=== PATIENT | female | born 1985 | race Caucasian/White ===

== ENCOUNTER 2024-05-15 08:11 | Observation (INO) | payer OTHER, SELFPAY ==
[2024-05-15] VITALS (80 sets, daily range): BP systolic 133–240; BP diastolic 73–141; PULSE 87–245; RESP 15–30; TEMP 36.4–36.7; O2SAT 93–98
[2024-05-15] MEDS: adenosine 3 mg/mL SDV 2mL 6 MG IVP (08:22)
[2024-05-15] MEDS: adenosine 3 mg/mL SDV 2mL 12 MG IVP (08:24)
--- NOTE | 2024-05-15 08:27 | ECG_ITS ---
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 Measurements Intervals [place] Rate: 120 P: 59 SD: 162 QRS: 43 QRSD: 68 T: 23 QT: 293 QTc: 415 Interpretive Statements SINUS TACHYCARDIA No previous ECG available for comparison Electronically Signed On 05-18-2024 22:09:48 FLORICULTURIST by Brady Christian M.D. [id number]
--- NOTE | 2024-05-15 08:30 | ED_ITS ---
HPI - Arrhythmia/Palpitations 2 General: Chief Complaint: Arrhythmia/Palpitations Stated Complaint: chest pain Time Seen by Provider: 05/15/24 08:28 History of Present Illness: 39-year-old female presents to the [facility] ency room with history of rapid heart rates. She states she has had episodes frequently of racing heart rate with her usually self terminating. She has seen In consultation regarding this but they have not made to confirm diagnosis. 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 She is not having any chest pain at this time. Patient denies being diabetic. She is not on any medication to suppress her heart rate she does occasionally use albuterol nebulizer but has not associated these episodes with the use of the albuterol. She has no known history of heart disease. She did not previously had a angiogram or stress test or echocardiogram. Related Data Home Medications Medication Instructions Recorded Confirmed albuterol sulfate 2.5 mg/3 mL 2.5 mg inhalation TID PRN 05/15/24 05/15/24 (0.083 %) solution for nebulization Shortness Of Breath Or Wheezing albuterol sulfate 90 mcg/actuation 2 puff inhalation Q6H PRN 05/15/24 05/15/24 aerosol inhaler Shortness Of Breath Or Wheezing budesonide-formoterol HFA 160 2 puff inhalation BID 05/15/24 05/15/24 mcg-4.5 mcg/actuation aerosol inhaler (Symbicort) Allergies Allergy/AdvReac Type Severity Reaction Status Date / Time brompheniramine Allergy ALGY-Hives Verified 05/15/24 08:43 [From Dimetapp (brompheniramine-PPA)] phenylpropanolamine Allergy ALGY-Hives Verified 05/15/24 08:43 [From Dimetapp (brompheniramine-PPA)] Review of Systems 2 Const: Denies: fever(s) or chills Card: Reports: palpitations and dyspnea on exertion; Denies: chest pain Resp: Denies: dyspnea GI: Denies: abdominal pain : Denies: dysuria, urinary frequency or urinary urgency Musc: Denies: neck pain or back pain Skin/Breast: Denies: rash PFSH ED 2 PFSH: Medical History Asthma Physical Exam 2 Const: GENERAL APPEARANCE: cooperative ORIENTATION/CONSCIOUSNESS: Yes awake, Yes oriented to person, Yes oriented to place and Yes oriented to time HENMT: COMMON NORMALS: normocephalic, atraumatic and hearing grossly normal bilaterally HEAD & SCALP: normocephalic and atraumatic Resp: COMMON NORMALS: normal respiratory effort, No retractions, No use of accessory muscles and clear to auscultation bilaterally AUSCULTATION: clear to auscultation bilaterally Cardio: COMMON NORMALS: regular rhythm and No murmurs present (Cardio) R ATE: tachycardic RHYTHM: regular rhythm GI: COMMON NORMALS: Soft to palpation and No hepatosplenomegaly present A USCULTATION: Yes normoactive bowel sounds PALPATION: Yes Soft to palpation, No Tenderness to palpation present (GI), No Guarding due to palpation present (GI) and Yes No hepatosplenomegaly present Extremity: COMMON NORMALS: normal to inspection, capillary refill normal, no clubbing, cyanosis or edema, no calf tenderness and no pedal edema Neuro: SENSORIUM/ORIENTATION: Yes oriented to person, Yes oriented to place and Yes oriented to time Skin: COMMON NORMALS: no rashes or lesions noted GENERAL SKIN EXAM: no rashes or lesions noted Course 2 Vital Signs: Vital signs: Vital Signs Temperature 98.1 F 05/15/24 08:15 Pulse Rate 90 05/15/24 14:47 Respiratory Rate 18 05/15/24 11:21 Blood Pressure 177/108 05/15/24 14:47 Pulse Oximetry 98 05/15/24 14:47 Oxygen Delivery Me thod Room Air 05/15/24 14:22 MDM - Arrhythmia/Palpitations Medical Decision Making Patient initially presents to the rapid heart rate in the 230s to 240s appears to be SVT. She is moderately symptomatic. Triage nurse expedited patient back to one of the trauma bay's while IV was being established we tried carotid massage was also tried Valsalva maneuvers with no slowing of rate. Patient was given 6 mg of IV adenosine with no noticeable improvement second dose at 12 converted her to a sinus tachycardia. Blood pressure was stable 130s systolic. She is given IV metoprolol and p.o. metoprolol other labs pending. Patient remained stable after converting however her blood pressure did climb she was given hydralazine and another dose of IV metoprolol. She had a significant bump in her troponin while she was in the SVT she was complaining quite a bit of chest pain which she had before when she had shorter episodes of arrhythmias that were also likely SVTs. She did come in today simply because it did not spontaneously help. Discussed with hospitalist as well as with cardiology cardiology recommends observation will place her on obvious and consult cardiology orders written Medical Records I reviewed the patient's medical records. Lab Data I reviewed the patient's lab results. 05/15/24 08:25 05/15/24 08:25 Radiology Impressions Chest X-Ray 05/15/24 09:14 IMPRESSION: No acute cardiopulmonary abnormality. Mild prominent cardiac silhouette. Laboratory Results WBC 10.45 10^3/uL (3.29-11.43) 05/15/24 08:25 RBC 4.94 10^6/uL (3.85-5.65) 05/15/24 08:25 Hgb 16.70 g/dL (11.27-16.99) 05/15/24 08:25 Hct 49.6 % (36-47) H 05/15/24 08:25 MCV 100.4 fl (85-98) H 05/15/24 08:25 MCH 33.8 pg (27-33) H 05/15/24 08:25 MCHC 33.7 g/dL (30-55) 05/15/24 08:25 RDW 13.6 % (12.1-15.1) 05/15/24 08:25 Plt Count 264 10^3/cmm (157-399) 05/15/24 08:25 MPV 9.5 fL (7.4-10.4) 05/15/24 08:25 Neut % (Auto) 65.8 % 05/15/24 08:25 Lymph % (Auto) 26.0 % 05/15/24 08:25 [place] % (Auto) 5.6 % 05/15/24 08:25 Eos % (Auto) 1.7 % 05/15/24 08:25 Baso % (Auto) 0.4 % 05/15/24 08:25 Neut # (Auto) 6.88 10^3/uL (1.8-7.7) 05/15/24 08:25 Lymph # (Auto) 2.7 10^3/uL (0.8-4.8) 05/15/24 08:25 [place] # (Auto) 0.6 10^3/uL (0.2-0.9) 05/15/24 08:25 Eos # (Auto) 0.2 10^3/uL (0.0-0.8) 05/15/24 08:25 Baso # (Auto) 0.0 10^3/uL (0.0-0.1) 05/15/24 08:25 Nucleated RBC % (auto) 0 % 05/15/24 08:25 Nucleated RBCs # 0.0 /100WBC 05/15/24 08:25 Sodium 138 mmol/L (136-145) 05/15/24 08:25 Potassium 4.2 mmol/L (3.5-5.1) 05/15/24 08:25 Chloride 99 mmol/L (98-107) 05/15/24 08:25 Carbon Dioxide 23 mmol/L (22-29) 05/15/24 08:25 Anion Gap 20.2 (5-19) H 05/15/24 08:25 BUN 8 mg/dL (6-20) 05/15/24 08:25 Creatinine 1.0 mg/dL (0.5-0.9) H 05/15/24 08:25 GFR Calculation 61.1 mL/min (90-130) L 05/15/24 08:25 Glucose 181 mg/dL (65-115) H 05/15/24 08:25 Calculated Osmolality 289 mOsm/kg (285-295) 05/15/24 08:25 Calcium 8.9 mg/dL (8.5-10.5) 05/15/24 08:25 Total Bilirubin 0.6 mg/dL (0.15-1.2) 05/15/24 08:25 AST 52 U/L (0-32) H 05/15/24 08:25 ALT 49 U/L (0-33) H 05/15/24 08:25 Alkaline Phosphatase 154 U/L (35-105) H 05/15/24 08:25 Troponin T Baseline 7 ng/L (0-10) 05/15/24 08:25 Troponin T 120 Minute 39.90 ng/L (0-10) H 05/15/24 10:27 Delta Troponin T 32.90 ABS# (0-10) H* 05/15/24 10:27 Total Protein 7.2 g/dL (6.6-8.7) 05/15/24 08:25 Albumin 4.2 g/dL (3.5-5.2) 05/15/24 08: Globulin 3.0 g/dL (1.3-4.6) 05/15/24 08:25 TSH 5.59 uIU/mL (0.27-4.20) H 05/15/24 08:25 Urine Color Yellow (Yellow) 05/15/24 09:45 Urine Appearance Cloudy (CLEAR) A 05/15/24 09:45 Urine pH 6.0 (5-7) 05/15/24 09:45 Ur Specific [place] 1.012 (1.005-1.030) 05/15/24 09:45 Urine Protein 1+ (Negative) A 05/15/24 09:45 Urine Glucose (UA) Negative (Normal) 05/15/24 09:45 Urine Ketones Negative (Negative) 05/15/24 09:45 Urine Blood Non-haemolysed trace (Negative) 05/15/24 09:45 Urine Nitrate Negative (Negative) 05/15/24 09:45 Urine Bilirubin Negative (Negative) 05/15/24 09:45 Urine Urobilinogen 1.0 mg/dL (Negative) 05/15/24 09:45 Ur Leukocyte Esterase Negative (Negative) 05/15/24 09:45 Urine RBC 0-2 /hpf (0-2) 05/15/24 09:45 Urine WBC 6-10 /hpf (0-5) 05/15/24 09:45 Ur Squamous Epith Cells 11-20 /hpf (0-5) H 05/15/24 09:45 Amorphous Sediment Not Reportable 05/15/24 09:45 Urine Bacteria 1+ /hpf (NONE) H 05/15/24 09:45 Hyaline Casts 7.85 /lpf 05/15/24 09:45 Urine Opiates Screen Negative ng/mL (Negative) 05/15/24 09:45 Ur Barbiturates Screen Negative ng/mL (Negative) 05/15/24 09:45 Ur Phencyclidine Scrn Negative ng/mL (Negative) 05/15/24 09:45 Ur Amphetamines Screen Negative ng/mL (Negative) 05/15/24 09:45 U Benzodiazepines Scrn Negative ng/mL (Negative) 05/15/24 09:45 Urine Cocaine Screen Negative ng/mL (Negative) 05/15/24 09:45 U Marijuana (THC) Screen Positive ng/mL (Negative) H 05/15/24 09:45 All radiology interpretation(s) finalized by discharge Discharge Plan Discharge Patient Disposition: Admitted As Inpatient Admit Provider: Jerry Mccarthy Clinical Impression: SVT (supraventricular tachycardia), Elevated troponin, Asthma Condition: Stable Coding Level of Care Code ED Forestry Hunter for Aranza Powers
[2024-05-15 08:35] LABS: Basophils % 0.4 %; Eosinophils # 0.2 10^3/uL (0.0-0.8); Eosinophils % 1.7 %; Hematocrit 49.6 % (36-47); Lymphocytes # 2.7 10^3/uL (0.8-4.8); Mean Corpuscular HGB Conc 33.7 g/dL (30-55); Mean Corpuscular Hemoglobin 33.8 pg (27-33); Mean Corpuscular Volume 100.4 fl (85-98); Mean Platelet Volume 9.5 fL (7.4-10.4); Monocytes # 0.6 10^3/uL (0.2-0.9); Monocytes % 5.6 %; Neutrophils # 6.88 10^3/uL (1.8-7.7); Neutrophils % 65.8 %; Nucleated Red Blood Cells % 0 %; Platelet Count 264 10^3/cmm (157-399); Red Blood Count 4.94 10^6/uL (3.85-5.65); Red Cell Distribution Width 13.6 % (12.1-15.1); White Blood Count 10.45 10^3/uL (3.29-11.43)
[2024-05-15] MEDS: metoprolol succinate ER (24 HR) 25 mg Tablet PO (08:40)
[2024-05-15] MEDS: metoprolol tartrate 1 mg/1 mL SDV 5 mL 5 MG IVP ×2 (08:40→13:24)
[2024-05-15 09:05] LABS: Troponin(5th) Baseline 7 ng/L (0-10)
--- NOTE | 2024-05-15 09:14 | XRR_ITS ---
PROCEDURE INFORMATION: Exam: XR Chest Exam date and time: 05/15/2024 9:17 AM Age: 39 years old Clinical indication: Pain; Angina pectoris; Chest discomfort, svt. Aed pads on patient for cxr; Additional info: Chest discomfort/svt TECHNIQUE: Imaging protocol: Radiologic exam of the chest. Views: 1 view. COMPARISON: No relevant prior studies available. FINDINGS: Tubes, catheters and devices: Cardiac monitoring device projecting at the right hilum. Lungs: No focal consolidation. Pleural spaces: No pleural effusion. No pneumothorax. Heart/Mediastinum: Mild prominent cardiac silhouette. Bones/joints: Minimal degenerative change of the visualized spine and bilateral shoulders. XR/XR chest 1V portable [id number] IMPRESSION: No acute cardiopulmonary abnormality. Mild prominent cardiac silhouette.
[2024-05-15 09:15] LABS: Alanine Aminotransferase 49 U/L (0-33); Albumin Level 4.2 g/dL (3.5-5.2); Alkaline Phosphatase 154 U/L (35-105); Anion Gap 20.2 (5-19); Aspartate Amino Transferase 52 U/L (0-32); Blood Urea Nitrogen 8 mg/dL (6-20); Calcium 8.9 mg/dL (8.5-10.5); Carbon Dioxide 23 mmol/L (22-29); Chloride 99 mmol/L (98-107); Glomerular Filtration Rate 61.1 mL/min (90-130); Glucose 181 mg/dL (65-115); Osmolality Calculated 289 mOsm/kg (285-295); Potassium 4.2 mmol/L (3.5-5.1); Sodium 138 mmol/L (136-145); Thyroid Stimulating Hormone 5.59 uIU/mL (0.27-4.20); Total Bilirubin 0.6 mg/dL (0.15-1.2); Total Protein 7.2 g/dL (6.6-8.7)
[2024-05-15 10:09] LABS: Bilirubin Urine Negative (Negative); Blood Urine Non-haemolysed trace (Negative); Glucose Urine UA Negative (Normal); Ketones Urine Negative (Negative); Leukocyte Esterase Urine Negative (Negative); Nitrate Urine Negative (Negative); Protein Urine 1+ (Negative); Specific Gravity, Urine 1.012 (1.005-1.030); Urine Appearance Cloudy (CLEAR); Urine Color Yellow (Yellow)
[2024-05-15 10:14] LABS: Add Urine Microscopic? YES; Bacteria Urine 1+ /hpf; Hyaline Casts Urine 7.85 /lpf; RBC Urine 0-2 /hpf (0-2)
[2024-05-15 10:16] LABS: Amphetamines Screen Urine Negative (Negative); Barbiturates Screen Urine Negative (Negative); Benzodiazepines Screen Urine Negative (Negative); Cocaine Screen Urine Negative (Negative); Opiate Screen Urine Negative (Negative); PCP Screen Urine Negative (Negative); THC Screen Urine Positive (Negative)
[2024-05-15 10:24] LABS: UA Slide Review UA Slide Review Perf
--- NOTE | 2024-05-15 10:29 | ECG_ITS ---
[employer] Test Date: 2024-05-15 Pat Name: Shanice Alvarado Department: Room: Gender: Female Kayak Maker: : 1985 Requested By: Johnie Sumner Order Number: [id number] Mac MD: Brady Christian M.D. Measurements Intervals [place] Rate: 84 P: 62 CA: 155 QRS: 42 QRSD: 75 T: 38 QT: 358 QTc: 425 Interpretive Statements SINUS RHYTHM Compared to ECG 05/15/2024 08:27:58 Sinus tachycardia no longer present Electronically Signed On 05-18-2024 22:24:13 LABELING SPECIALIST by Brady Christian M.D. [email or web address] [id number]
--- NOTE | 2024-05-15 10:47 | ECG_ITS ---
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 Measurements Intervals [place] Rate: 239 P: 0 AR: 0 QRS: 39 QRSD: 178 T: 0 QT: 172 QTc: 343 Interpretive Statements SUPRAVENTRICULAR TACHYCARDIA Electronically Signed On 05-18-2024 22:24:50 BURGLAR ALARM ASSEMBLER by Brady Christian M.D. [email or web address] [id number]
--- NOTE | 2024-05-15 13:03 | PC.NURSE ---
pt bp 220s/130s, dr. ro notified.
[2024-05-15] MEDS: hyDRALAzine 20 mg/mL INJ 1 mL IVP (13:24)
--- NOTE | 2024-05-15 14:23 | P.PN_ITS ---
Subjective 2 Subjective: This a very pleasant 39-year-old female who has a history of hypertension although she does not know what it runs at home she states sometimes when she goes in the doctor's office it is elevated, asthma, denies diabetes, denies history of high cholesterol, reports hx of frequent palpitations who came into the emergency room today for her heart racing. She states this has happened a couple times and usually by the time she decides to go in to seek medical attention that the arrhythmia goes away. This time it did not. She states her heart started racing while she was working and she became symptomatic with dizziness and headache. She denies any chest pain. She states that when her heart rate got high she had some discomfort but once it settled down she did not have any chest discomfort. No known history of heart disease. Her EKG showed SVT. Patient was given adenosine 6 mg IV push once without success. She then received adenosine at 12 mg IV push once. She also received Lopressor 5 mg IV push twice. Current heart rate is now in the 80s. She also received oral dose of 25 mg p.o. once of metoprolol succinate. Initial troponin was negative at 7 and slightly trended up to 39.9. Toxicology screening was positive for marijuana. Medications: Reviewed: Yes Vitals/I&O/Wt Last Vital Signs Temp 98.1 F 05/15/24 08:15 Pulse 90 05/15/24 14:22 Resp 18 05/15/24 11:21 BP 177/122 05/15/24 13:58 Pulse Ox 97 05/15/24 14:22 O2 Del Method Room Air 05/15/24 14:22 Physical Exam 2 Narrative: General: No apparent distress, healthy appearing, well nourished HENMT: normoceophalic Muskuloskeletal: Full ROM Lymphatic: no lymphedema noted Respiratory: Normal respiratory effort, clear to auscultation bilaterally throughout all lung de leon, no use of accessory muscles Cardio: No JVD, regular rate, regular rhythm, S1 S2 normal, no murmurs, peripheral pulses 2+ radial palpated bilaterally GI: Normal to inspection, nondistended Extremities: Full ROM, normal, normal capillary refill, no cyanosis or edema Neuro: Alert and oriented x4, no focal motor deficits Psych: Affect normal, denies suicidal ideation, mental status grossly normal Skin: No rashes or lesions noted, no wounds Data 02/04/25 02:30 05/16/24 02:30 A&P Assessment and plan (1) SVT (supraventricular tachycardia): (2) Elevated troponin: (3) Asthma: Qualifiers: Asthma complication type: unspecified Asthma persistence: unspecified Asthma severity: unspecified severity Qualified Code(s): J45.909 - Unspecified asthma, uncomplicated Plan At this time, patient is chest pain free. Her blood pressure is still elevated with HR in the 90s. At this time, I recommend increasing Metoprolol to 50 mg daily. Patient has already received 25 mg today. She may be given another 25 mg and start 50 mg tomorrow. Patient's elevated troponin could be due to the SVT, but a stress test would be reasonable to rule out coronary ischemia. Will order this as well as echo. Continue to monitor troponin and EKG for changes. Thank you Dr. Lacey, for allowing us to care for this very pleasant 39 year old female. Attestations 2 Medical Necessity Statement*: Patient stay expected to cross 2 midnights due to acute SVT as well as elevated troponin. Coding Level of Care Code Acute Code for [facility] Fwd Diagnoses SVT (supraventricular tachycardia) I47.10 Elevated troponin R79.89 Asthma, unspecified asthma severity, unspecified whether complicated, unspecified whether persistent J45.909 Asthma complication type: unspecified Asthma persistence: unspecified Asthma severity: unspecified severity
--- NOTE | 2024-05-15 14:35 | USCV_ITS ---
Shanice Alvarado Age: 39 Gender: F : 1985 Exam Date: 05/15/2024 15:39 Ordering Phys: Kylie Fuller NP Technologist: Exam Location: [facility] [place] Indication: htn BP: 139 / 114 HR: 91 Rhythm: Sinus Technical Quality: Adequate MEASUREMENTS (Male / Female) Normal Values 2D ECHO LV Diastolic Diameter PLAX 3.5 cm 4.2 - 5.9 / 3.9 - 5.3 cm IVS Diastolic Thickness 1.4 cm 0.6 - 1.0 / 0.6 - 0.9 cm IVS Systolic Thickness 1.8 cm LVPW Diastolic Thickness 1.3 cm 0.6 - 1.0 / 0.6 - 0.9 cm LVPW Systolic Thickness 2.0 cm LVOT Diameter 2.1 cm LV Ejection Fraction 2D Teich 54.1 % LV Ejection Fraction MOD 4C 64.5 % LV Ejection Fraction MOD 2C 66.0 % LV Ejection Fraction 2C AL 65.3 % LA Diameter 3.8 cm RA Systolic Volume 4C AL 45.3 ml RA Systolic Volume 4C MOD 43.8 ml Aorta at Sinotubular Diameter 2.8 cm M-MODE LA Ao Ratio MM 1.2 MV E Point Septal Separation 0.7 cm AV Cusp Separation MM 2.5 cm DOPPLER AV Peak Velocity 159.0 cm/s LVOT Peak Velocity 117.0 cm/s AV Area Cont Eq vti 2.6 cm squared AV Area Cont Eq pk 2.5 cm squared MV Peak Velocity 85.0 cm/s MV Area PHT 3.3 cm squared Mitral E to A Ratio 1.7 TV Peak Velocity 145.5 cm/s TR Peak Velocity 177.0 cm/s TR Peak Gradient 12.5 mmHg TV Peak E Velocity 98.0 cm/s PV Peak Velocity 95.0 cm/s FINDINGS Left Ventricle Normal left ventricular size, systolic function and wall thickness, with no regional wall motion abnormalities. Left ventricular ejection fraction is estimated at 60 %. Normal diastolic function. Right Ventricle The right ventricle is normal in size and function. Right Atrium The right atrium is normal in size. Left Atrium The left atrium is normal in size. Mitral Valve Structurally normal mitral valve without significant stenosis or prolapse. There is no mitral regurgitation. Aortic Valve Structurally normal aortic valve without significant sclerosis or stenosis. There is no aortic regurgitation. Tricuspid Valve Structurally normal tricuspid valve without significant stenosis or regurgitation. Pulmonary artery systolic pressure is normal. Pulmonic Valve Structurally normal pulmonic valve without significant stenosis. There is no pulmonic regurgitation. Pericardium Normal pericardium without effusion. Aorta Normal ascending aorta dimension. IVC The inferior vena cava appears normal. CONCLUSIONS Normal left ventricular size, systolic function and wall thickness, with no regional wall motion abnormalities. Left ventricular ejection fraction is estimated at 60 %. Normal diastolic function. No significant valve abnormalities. There is no pericardial effusion. Right atrial pressure is around 5 mm of mercury. Corazon Mckeon MD (Electronically Signed) Final Date: 16 May 2024 20:39 S
--- NOTE | 2024-05-15 14:48 | P.HP_ITS ---
Providers/Chief Complaint 2 Admitting Physician: Jerry Mccarthy Chief Complaint: chest pain History of Present Illness Pleasant 39 lady with history of palpitations, tachycardia episodes, for which she has been following with her primary provider. She states that she has cut out energy drinks. Presented to the ER due to palpitations which started at work accompanied by lightheadedness, dizziness, headache, with severe tachycardia, heart rates up into 240s, found to be in SVT. Tachycardia did not respond initially to 6 mg of adenosine, received 12 mg with return to sinus rhythm. Troponin noted rising from 7-39. Cardiology has been consulted. Review of Systems 2 Const: Denies: fever(s), chills, body aches or malaise ENMT: Denies: throat pain Card: Reports: palpitations, lightheadedness and pre-syncope; Denies: chest pain, edema or dyspnea on exertion Resp: Denies: dyspnea, productive cough, change in phlegm color or hemoptysis GI: Denies: abdominal pain, nausea, vomiting, diarrhea, constipation, hematochezia or melena : Denies: flank pain, urinary frequency or hematuria Musc: Denies: back pain, joint swelling or joint redness Skin/Breast: Denies: rash or new lesions Neuro: Denies: headache(s) or dizziness Endo: Denies: polyuria Medications/Allergies Home Medications Medication Instructions Recorded Confirmed Last Taken Type albuterol sulfate 2.5 mg/3 mL 2.5 mg inhalation TID PRN 05/15/24 05/15/24 05/15/24 History (0.083 %) solution for nebulization Shortness Of Breath Or Wheezing albuterol sulfate 90 mcg/actuation 2 puff inhalation Q6H PRN 05/15/24 05/15/24 Unknown History aerosol inhaler Shortness Of Breath Or Wheezing budesonide-formoterol HFA 160 2 puff inhalation BID 05/15/24 05/15/24 Unknown History mcg-4.5 mcg/actuation aerosol inhaler (Symbicort) Allergies Allergy/AdvReac Type Severity Reaction Status Date / Time brompheniramine Allergy ALGY-Hives Verified 05/15/24 08:43 [From Dimetapp (brompheniramine-PPA)] ketorolac [From Toradol] Allergy ADR-Nausea Verified 05/15/24 15:20 phenylpropanolamine Allergy ALGY-Hives Verified 05/15/24 08:43 [From Dimetapp (brompheniramine-PPA)] banana AdvReac swelling Uncoded 05/15/24 15:20 mouth PFSH Acute 2 PFSH: Medical History Asthma Social History (Updated 05/15/24 @ 15:09 by Jerry Mccarthy MD) Alcohol intake: current Vitals/I&O/Wt Last Vital Signs Temp 98.1 F 05/15/24 08:15 Pulse 90 05/15/24 14:22 Resp 18 05/15/24 11:21 BP 177/108 05/15/24 14:29 Pulse Ox 97 05/15/24 14:22 O2 Del Method Room Air 05/15/24 14:22 Physical Exam 2 Narrative: Sitting up in bed Const: COMMON NORMALS: patient oriented x3 and alert GENERAL APPEARANCE: c ooperative NUTRITIONAL APPEARANCE: overweight ORIENTATION/CONSCIOUSNESS: Y es awake HENMT: COMMON NORMALS: oropharynx normal Neck/C-Spine: COMMON NORMALS: no JVD Resp: COMMON NORMALS: normal respiratory effort and clear to auscultation bilaterally AUSCULTATION: clear to auscultation bilaterally Cardio: COMMON NORMALS: no JVD, regular rhythm, S1 normal heart sound present, S2 normal heart sound present and No murmurs present (Cardio) RHYTHM: regular rhythm HEART SOUNDS: S1 normal heart sound present and S2 normal heart sound present GI: COMMON NORMALS: Normal to inspection, nondistended, normoactive bowel sounds present, Soft to palpation and non-tender PALPATION: Yes Soft to palpation Extremity: COMMON NORMALS: no joint enlargement and no pedal edema Neuro: COMMON NORMALS: patient oriented x3 and moves all extremities S ENSORIUM/ORIENTATION: Yes alert Skin: COMMON NORMALS: no rashes or lesions noted GENERAL SKIN EXAM: no rashes or lesions noted Data 05/15/24 08:25 05/15/24 08:25 A&P Assessment and plan (1) SVT (supraventricular tachycardia): Reviewed vitals, CBC, CMP, troponin, EKG, on my interpretation there is no visible ST elevation, although there is a wandering baseline, pending official read. Chest x-ray, UDS, UA, ER provider note, cardiology note, discussed with ER provider. Status post 6 and then 12 mg of adenosine terminating SVT rhythm. With positive troponin delta. She states has cut out energy drinks, but still drinks soda. Also intermittently has alcohol. Complete troponin EKG series. Assess TTE. Monitor on telemetry with risk of further arrhythmia. She is started on metoprolol, continue. Pending cardiac reassessment. TSH noted with mild elevation of 5.59, discussed with her. Check free T4. Check magnesium. Discussed with her to avoid any alcohol. Avoid soda. (2) Elevated troponin: Positive troponin delta, baseline 7, at 2 hours 39.9. Possible underlying coronary disease. She does have history of hypertension, obesity. Complete troponin EKG series. Obtain echocardiogram. (3) Asthma: Hold albuterol. Budesonide nebs. Low-dose Xopenex as needed. Discussed with RT. Monitor for risk of tachycardia. Qualifiers: Asthma severity: unspecified severity Asthma persistence: unspecified Asthma complication type: unspecified Qualified Code(s): J45.909 - Unspecified asthma, uncomplicated Attestations 2 Medical Necessity Statement*: Place in observation for assessment management after SVT with troponin elevation. Diagnoses SVT (supraventricular tachycardia) I47.10 Elevated troponin R79.89 Asthma, unspecified asthma severity, unspecified whether complicated, unspecified whether persistent J45.909 Asthma severity: unspecified severity Asthma persistence: unspecified Asthma complication type: unspecified
[2024-05-15 14:57] LABS: Troponin 5 6HR 40.55 ng/L (0-10)
[2024-05-15 15:05] LABS: Troponin 5 6HR Delta 33.55 ng/L (0-12)
--- NOTE | 2024-05-15 16:05 | ECG_ITS ---
[facility] Test Date: 2024-05-15 Pat Name: Shanice Alvarado Department: Room: 106 Gender: Female Director Search: : 1985 Requested By: Johnie Sumner Order Number: [id number] Mac MD: Brady Christian M.D. Measurements Intervals [place] Rate: 87 P: 60 AR: 148 QRS: 46 QRSD: 82 T: 43 QT: 374 QTc: 452 Interpretive Statements SINUS RHYTHM Compared to ECG 05/15/2024 08:27:58 Sinus tachycardia no longer present Electronically Signed On 05-18-2024 22:23:13 EKG/ECG TECHNICIAN by Brady Christian M.D. [email or web address]
[2024-05-15 16:20] LABS: Free T4 Free Thyroxine 1.06 ng/dL (0.82-1.77)
--- NOTE | 2024-05-15 16:27 | ECG_ITS ---
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 [id number]
[2024-05-15] MEDS: levalbuterol 0.63 mg/3 mL Neb INHALATION (16:41)
[2024-05-15 17:13] LABS: HCG Qualitative Urine. Negative (Negative)
[2024-05-15 17:37] LABS: Glucose Point of Care 119 mg/dL (70-110)
--- NOTE | 2024-05-15 23:53 | P.CONIM_ITS ---
Providers/Reason For Consult 2 Consulting Physician/Specialty*: Brady Christian MD/ Cardiology Reason for Consult*: SVT/ Chest pain Requesting Physician: Dr Lacey Attending Physician: Jerry Mccarthy History of Present Illness History of Present Illness Shanice Alvarado is a 39 year old female presented to hospital with palpitations and chest pain. Found to have SVT. Converted to NSR with adenosine. Per patient she gets these episodes frequently. Troponin elevated from baseline of 7 to 39 at 6 hours. Review of Systems 2 Const: Denies: fever(s) or chills Card: Reports: palpitations and dyspnea on exertion; Denies: chest pain Resp: Denies: dyspnea GI: Denies: abdominal pain : Denies: dysuria, urinary frequency or urinary urgency Musc: Denies: neck pain or back pain Skin/Breast: Denies: rash Medications/Allergies Home Medications Medication Instructions Recorded Confirmed Last Taken Type albuterol sulfate 2.5 mg/3 mL 2.5 mg inhalation TID PRN 05/15/24 05/15/24 05/15/24 History (0.083 %) solution for nebulization Shortness Of Breath Or Wheezing albuterol sulfate 90 mcg/actuation 2 puff inhalation Q6H PRN 05/15/24 05/15/24 Unknown History aerosol inhaler Shortness Of Breath Or Wheezing budesonide-formoterol HFA 160 2 puff inhalation BID 05/15/24 05/15/24 Unknown History mcg-4.5 mcg/actuation aerosol inhaler (Symbicort) Allergies Allergy/AdvReac Type Severity Reaction Status Date / Time brompheniramine Allergy ALGY-Hives Verified 05/15/24 08:43 [From Dimetapp (brompheniramine-PPA)] ketorolac [From Toradol] Allergy ADR-Nausea Verified 05/15/24 15:20 phenylpropanolamine Allergy ALGY-Hives Verified 05/15/24 08:43 [From Dimetapp (brompheniramine-PPA)] banana AdvReac swelling Uncoded 05/15/24 15:20 mouth Current Medications Generic Name Dose Route Start Last Admin Trade Name Freq PRN Reason Stop Dose Admin Budesonide 0.25 mg 05/15/24 20:00 05/15/24 21:09 Budesonide 0.5 Mg/2 Ml Neb INHALATION Not Given BID.RESPIRATORY BRITTNI Levalbuterol HCl 0.63 mg 05/15/24 16:17 05/15/24 16:41 Levalbuterol 0.63 Mg/3 Ml Neb INHALATION 0.63 mg Q6H.RESP PRN Administration WHEEZING PFSH Acute 2 PFSH: Medical History Asthma Social History Alcohol intake: current Vitals/I&O/Wt Last Vital Signs Temp 97.6 F 05/15/24 20:00 Pulse 87 05/15/24 22:00 Resp 17 05/15/24 21:10 BP 161/111 05/15/24 20:00 Pulse Ox 96 05/15/24 21:10 O2 Del Method Room Air 05/15/24 21:10 05/15/24 05/15/24 05/16/24 14:59 22:59 06:59 Intake Total 480 / 480 Balance 480 / 480 Weight last 48 hrs Weight 300 lb Physical Exam 2 Narrative: General: Alert and oriented x 3 HENMT: normoceophalic Muskuloskeletal: Full ROM Lymphatic: no lymphedema noted Respiratory: Clear to auscultation bilaterally Cardio: Regular rate and rhythm Extremities: No edema Data 05/15/24 08:25 05/15/24 08:25 A&P Assessment and plan (1) SVT (supraventricular tachycardia): (2) Elevated troponin: (3) Asthma: Qualifiers: Asthma severity: unspecified severity Asthma persistence: unspecified Asthma complication type: unspecified Qualified Code(s): J45.909 - Unspecified asthma, uncomplicated Plan Patient had chest discomfort with SVT episode. Now back in NSR. Troponin went up significantly. Likely secondary to demand ischemia. We will obtain stress test to rule out ischemia. Order echocardiogram Thank you for involving us with care of this patient. Please call with questions Consult Attestations 2 Medical Necessity Statement: Care not expected to cross 2 midnights. Coding Level of Care Code Acute Code for [facility] Diagnoses SVT (supraventricular tachycardia) I47.10 Elevated troponin R79.89 Asthma, unspecified asthma severity, unspecified whether complicated, unspecified whether persistent J45.909 Asthma severity: unspecified severity Asthma persistence: unspecified Asthma complication type: unspecified
[2024-05-16] VITALS (8 sets, daily range): BP systolic 140–161; BP diastolic 90–108; PULSE 81–109; RESP 18–27; TEMP 36.3–36.7; O2SAT 92–96
[2024-05-16] MEDS: hyDRALAzine 20 mg/mL INJ 1 mL 10 MG IVP ×3 (00:47→07:25)
[2024-05-16 05:32] LABS: Basophils % 0.3 %; Eosinophils # 0.1 10^3/uL (0.0-0.8); Eosinophils % 1.7 %; Hematocrit 43.6 % (36-47); Lymphocytes # 1.5 10^3/uL (0.8-4.8); Lymphocytes % 23.9 %; Mean Corpuscular HGB Conc 33.7 g/dL (30-55); Mean Corpuscular Volume 100.9 fl (85-98); Mean Platelet Volume 10.3 fL (7.4-10.4); Monocytes # 0.3 10^3/uL (0.2-0.9); Monocytes % 4.9 %; Neutrophils % 68.9 %; Nucleated Red Blood Cells % 0 %; Platelet Count 216 10^3/cmm (157-399); Red Blood Count 4.32 10^6/uL (3.85-5.65); Red Cell Distribution Width 13.6 % (12.1-15.1); White Blood Count 6.39 10^3/uL (3.29-11.43)
[2024-05-16 05:49] LABS: Alanine Aminotransferase 35 U/L (0-33); Albumin Level 3.6 g/dL (3.5-5.2); Alkaline Phosphatase 120 U/L (35-105); Anion Gap 11.8 (5-19); Aspartate Amino Transferase 29 U/L (0-32); Blood Urea Nitrogen 8 mg/dL (6-20); Calcium 8.5 mg/dL (8.5-10.5); Carbon Dioxide 26 mmol/L (22-29); Chloride 102 mmol/L (98-107); Globulin 2.6 g/dL (1.3-4.6); Glomerular Filtration Rate 92.2 mL/min (90-130); Glucose 108 mg/dL (65-115); Osmolality Calculated 281 mOsm/kg (285-295); Potassium 3.8 mmol/L (3.5-5.1); Sodium 136 mmol/L (136-145); Total Bilirubin 0.6 mg/dL (0.15-1.2); Total Protein 6.2 g/dL (6.6-8.7)
[2024-05-16] MEDS: regadenoson 0.4 Mg/5 ml Syringe IVP (07:14)
[2024-05-16] MEDS: ondansetron 2 mg/ML SDV 2 mL 4 MG IVP (07:41)
--- NOTE | 2024-05-16 07:45 | PC.NURSE ---
CDL COURSE The patients 1st stress BP was 192/113. Hydralazine 10mg IVP was given as orderd. BP came down to 172/113. Dr. Christian was updated and orders received to administer another 10mg of Hydralazine IVP prior to DC from [facility]. The 2nd dose was given at 0725. See JUN. The closing BP was 160/102. At 0740 the patient had complaints of nauseousness. Zofran 4mg SIVP was administered as ordered. The patient was the taken to [facility] for her 2nd set of images by Brandee [facility] tech. Samm CSU RN, was notifed of the above.
[2024-05-16] MEDS: budesonide 0.5 mg/2 mL Neb 0.25 MG INHALATION (08:31)
[2024-05-16] MEDS: acetaminophen 325 mg Tablet 650 MG PO (09:04)
[2024-05-16] MEDS: metoprolol tartrate 25 mg Tablet PO (10:12)
--- NOTE | 2024-05-16 10:23 | PC.CHAP ---
Pastoral Care Encounter/Spiritual Assessment Type of Contact [] Declined tax compliance agent visit [] Patient/Family/Request visit [] Outpatient visit [] Follow-up visit [] Physician referral [] Code/Alert [x] Routine visit [] Staff referral [] Actively dying [] Patient sleeping [x] Family support [] [] Out of room [] Palliative care [] [] Receiving care in room [] Pre-surgical visit [] Trauma [] Long length of stay [] ICU visit [] Other: Relational/Emotional Strength [x] Patient feels connected with others/family/visitors/staff [] Distress [] Loneliness/isolation [] Abandonment Spirituality of Patient [x] Person of Cara [] Attends Shinto of their Cara [x] Believes in Prayer [] Reads Bible or Religion materials [] There are Spiritual issues to be addressed Ice Handler Interventions [x] Prayer [x] Active listening [] Non-anxious presence [x] Spiritual/emotional support [] Crisis/trauma care [] Spiritual counseling [] Bereavement support [] Provided bereavement packet [] Provided Bible/devotional materials [] Provided toy/stuffed animal, coloring book to patient or family member [] Provided Communion [] Anointing/[place] [] Salvation [x] Completed spiritual assessment [] Other: Impact on Illness or Injury [] Angry [] Fearful [] Anxious [] Often cries [] Exhaustion [] Unable to work [] Unable to attend presybeterian [] Unable to walk/stand [] Unable to read [] Unable to drive [] Unable to eat/drink [] Unable to sleep [] Unable to be with family [] Patient intubated [] Other: Summary Time spent with patient 5 min
[2024-05-16 11:43] LABS: D Dimer 0.61 ug/mLFEU (0-0.59)
[2024-05-16] MEDS: famotidine 20 mg Tablet 40 MG PO (11:51)
[2024-05-16] MEDS: ibuprofen 600 mg Tablet PO (12:40)
--- NOTE | 2024-05-16 14:16 | CT_ITS ---
WS: [id number] CT CHEST ANGIOGRAPHY WITH REFORMATS HISTORY: assess for PE TECHNIQUE: Contiguous axial images are obtained through the chest during arterial injection of intravenous contrast. Images are reconstructed to evaluate the pulmonary arteries. MIP imaging also reviewed. All CT scans at [facility] use at least one of these dose optimization techniques: automated exposure control; mA and/or kV adjustment per patient size (includes targeted exams where dose is matched to clinical indication); or iterative reconstruction. CONTRAST: Omnipaque 350; 100 mL IV. DLP: 562.66 mGy.cm COMPARISON: None available. Good opacification of the pulmonary arteries. No pulmonary emboli are identified. No RIGHT heart strain. Normal size heart. Normal size aorta. Normal pulmonary artery. No pericardial or pleural effusions. Lungs are clear and well aerated. No pneumonia. No mediastinal or hilar adenopathy. Marked hepatic steatosis within the visualized liver. Liver is not completely included but does appear large. No adrenal mass. No destructive bone lesions. CT/CT angio chest PE protcl [id number] IMPRESSION: 1. No pulmonary embolism. 2. No pneumonia. 3. Marked hepatic steatosis.
--- NOTE | 2024-05-16 14:18 | P.PN_ITS ---
<Statement entered by Corazon Mckeon MD - 05/16/24 22:00> Patient was evaluated and cared for in conjunction with an advanced practice practitioner. I personally examined the patient and reviewed the chart and all pertinent data including imaging, telemetry, and laboratory results. I discussed the patient in detail with the advanced practice practitioner. Please see their note for complete H&P testing result and agreed upon plan of care for the patient. Feeling better today heart rate is under control Detailed discussion with the patient regarding lifestyle modification GENERAL: Patient is alert, awake and oriented x3. HEART: Regular S1 and S2. No murmur, rub or gallop. LUNGS: Clear to auscultate bilaterally. CENTRAL NERVOUS SYSTEM: Grossly nonfocal. EXTREMITIES: Lower extremities with out edema bilaterally. Assessment and plan SVT Elevated D-dimer Add metoprolol Discussed lifestyle modification regarding quitting smoking drinking an energy drink Subjective 2 Subjective: Patient doing well overall. Heart rate is better controlled. We have started on metoprolol 25 twice daily. Overall she feels good. Stress test was negative. Echo with good as well with no structural abnormalities and good ejection fraction. We did have a discussion with the patient on triggers of her SVT. She will keep a log as well of these. Medications: Reviewed: Yes Vitals/I&O/Wt Last Vital Signs Temp 98.1 F 05/16/24 12:00 Pulse 86 05/16/24 12:00 Resp 20 H 05/16/24 12:00 BP 140/97 05/16/24 12:00 Pulse Ox 96 05/16/24 12:00 O2 Del Method Room Air 05/16/24 12:00 05/15/24 05/16/24 05/16/24 22:59 06:59 14:59 Intake Total 480 / 480 0 / 480 Balance 480 / 480 0 / 480 Weight last 48 hrs Weight 299 lb Weight 300 lb Physical Exam 2 Narrative: General: No apparent distress, healthy appearing, well nourished HENMT: normoceophalic Muskuloskeletal: Full ROM Lymphatic: no lymphedema noted Respiratory: Normal respiratory effort, clear to auscultation bilaterally throughout all lung de leon, no use of accessory muscles Cardio: No JVD, regular rate, regular rhythm, S1 S2 normal, no murmurs, peripheral pulses 2+ radial palpated bilaterally GI: Normal to inspection, nondistended Extremities: Full ROM, normal, normal capillary refill, no cyanosis or edema Neuro: Alert and oriented x4, no focal motor deficits Psych: Affect normal, denies suicidal ideation, mental status grossly normal Skin: No rashes or lesions noted, no wounds Data 05/16/24 02:30 05/16/24 02:30 A&P Assessment and plan (1) SVT (supraventricular tachycardia): (2) Elevated troponin: (3) Asthma: Qualifiers: Asthma severity: unspecified severity Asthma persistence: unspecified Asthma complication type: unspecified Qualified Code(s): J45.909 - Unspecified asthma, uncomplicated Plan Troponins were most likely elevated due to demand ischemia caused by the SVT. Stress test was negative and patient denies any chest discomfort since her rates have been better controlled. Recommend patient to go home on metoprolol succinate 50 mg daily. Should she have elevated heart rates she was instructed to take an extra tablet. She will monitor blood pressure as well as symptoms and see us in the clinic in 7 to 10 days. On an outpatient basis is recommended for patient to have a sleep study as she states she may have sleep apnea that is been undiagnosed. She also has underlying hypertension. She has a family history of arrhythmias that had required ablation. She stated she is going to quit drinking energy drinks as well as try to quit smoking as well. PDMP PDMP Reviewed: Not Reviewed Attestations 2 Medical Necessity Statement*: Patient may be discharged from a cardiology standpoint with metoprolol succinate 50 mg. To follow-up in clinic in 7 to 10 days. Coding Level of Care Code Acute Code for [facility] Diagnoses SVT (supraventricular tachycardia) I47.10 Elevated troponin R79.89 Asthma, unspecified asthma severity, unspecified whether complicated, unspecified whether persistent J45.909 Asthma severity: unspecified severity Asthma persistence: unspecified Asthma complication type: unspecified
[2024-05-16] MEDS: iohexol 350 mg/mL 500 mL Btl (per mL) IV (15:36)
--- NOTE | 2024-05-16 16:26 | P.DS_ITS ---
Discharge Providers Date of Admission: 05/15/24 12:08 Date of Discharge: May 16, 2024 Attending Provider at Admission: Jerry Mccarthy Attending Provider at Discharge: Jerry Mccarthy Primary Care Provider: Torsten Dunn APN Diagnoses at Discharge Discharge Diagnosis (1) SVT (supraventricular tachycardia): Status: Acute (2) Elevated troponin: Status: Acute (3) Asthma: Status: Acute Qualifiers: Asthma severity: unspecified severity Asthma persistence: unspecified Asthma complication type: unspecified Qualified Code(s): J45.909 - Unspecified asthma, uncomplicated Reason for Visit Reason for Visit: chest pain Hospital Course Hospital Course Pleasant 39-year-old lady with history of palpitations, tachycardia, had previously cut out energy drinks, but still has been having occasional alcoholic beverages, caffeinated sodas presented with palpitations, lightheadedness, presyncope episode at work. Found to be in SVT with heart rates up into 140s in ER. Did not respond to 6 mg of adenosine but did respond to 12 mg with conversion to sinus with some persistent sinus tachycardia. Otherwise afebrile, without leukocytosis or suggestion of acute infection. Chest x-ray with mildly prominent cardiac silhouette. Mild transient acute diastolic congestive heart failure secondary to tachycardia. TSH was checked, and mildly elevated. But free T4 was checked and normal. Please follow-up thyroid function in office in 3 weeks. She was assessed by cardiology, additionally assessed by echocardiogram as well as stress test. Myocardial perfusion imaging found to be normal. She was started on metoprolol. Did not have any recurrence of SVT. After stress that had some mild sinus tachycardia. D-dimer also with minimal abnormality 0.61. Mild troponin elevation likely secondary to cardiac demand. CT angiogram without sign of PE or pneumonia. She was reassessed by cardiology, otherwise found okay to return home without wire stitcher at current time but to seek medical attention in case of any recurrent episodes, as also discussed with her. She is instructed to avoid any alcohol and any caffeinated beverages. Cardiology will be reassessing her in office. Physical Exam Narrative: Sitting up in bed Const: COMMON NORMALS: patient oriented x3 and alert GENERAL APPEARANCE: cooperative NUTRITIONAL APPEARANCE: overweight ORIENTATION/CONSCIOUSNESS: Yes awake HENMT: COMMON NORMALS: oropharynx normal Neck/C-Spine: COMMON NORMALS: no JVD Resp: COMMON NORMALS: normal respiratory effort and clear to auscultation bilaterally AUSCULTATION: clear to auscultation bilaterally Cardio: COMMON NORMALS: no JVD, regular rhythm, S1 normal heart sound present, S2 normal heart sound present and No murmurs present (Cardio) RHYTHM: regular rhythm HEART SOUNDS: S1 normal heart sound present and S2 normal heart sound present GI: COMMON NORMALS: Normal to inspection, nondistended, normoactive bowel sounds present, Soft to palpation and non-tender PALPATION: Yes Soft to palpation Extremity: COMMON NORMALS: no joint enlargement and no pedal edema Neuro: COMMON NORMALS: patient oriented x3 and moves all extremities SENSORIUM/ORIENTATION: Yes alert Skin: COMMON NORMALS: no rashes or lesions noted GENERAL SKIN EXAM: no rashes or lesions noted Discharge Data Studies Completed and Pending Completed Studies During Hospitalization Category Date Time Status CTA chest [CT angio chest PE protcl [id number]] Stat Cat Scan 05/16/24 14:16 Completed Cardiac Stress Test MIBI [Sestamibi Stress Test Request Exams 05/15/24 16:27 Draft ] Routine XR chest 1V portable [id number] Stat Exams 05/15/24 09:14 Completed NM gwen perf SPECT r/s* [id number] Routine Nuc Med 05/16/24 16:27 Completed Pending at discharge Category Date Time Status Complete Blood Count w/Auto AM LABS Lab 05/17/24 04:00 Ordered Complete Blood Count w/Auto AM LABS Lab 05/18/24 04:00 Ordered Comprehensive Metabolic Panel AM LABS Lab 05/17/24 04:00 Ordered Comprehensive Metabolic Panel AM LABS Lab 05/18/24 04:00 Ordered Respiratory Panel 2 Routine Lab 05/16/24 12:25 Received CV. echo complete* [id number] Routine Ultrasound 05/15/24 14:35 Taken Radiology Impressions Chest X-Ray 05/15/24 09:14 IMPRESSION: No acute cardiopulmonary abnormality. Mild prominent cardiac silhouette. Chest CTA 05/16/24 14:16 IMPRESSION: 1. No pulmonary embolism. 2. No pneumonia. 3. Marked hepatic steatosis. Laboratory Results WBC 6.39 10^3/uL (3.29-11.43) 05/16/24 02:30 RBC 4.32 10^6/uL (3.85-5.65) 05/16/24 02:30 Hgb 14.70 g/dL (11.27-16.99) 05/16/24 02:30 Hct 43.6 % (36-47) 05/16/24 02:30 MCV 100.9 fl (85-98) H 05/16/24 02:30 MCH 34.0 pg (27-33) H 05/16/24 02:30 MCHC 33.7 g/dL (30-55) 05/16/24 02:30 RDW 13.6 % (12.1-15.1) 05/16/24 02:30 Plt Count 216 10^3/cmm (157-399) 05/16/24 02:30 MPV 10.3 fL (7.4-10.4) 05/16/24 02:30 Neut % (Auto) 68.9 % 05/16/24 02:30 Lymph % (Auto) 23.9 % 05/16/24 02: [place] % (Auto) 4.9 % 05/16/24 02: Eos % (Auto) 1.7 % 05/16/24 02:30 Baso % (Auto) 0.3 % 05/16/24 02:30 Neut # (Auto) 4.40 10^3/uL (1.8-7.7) 05/16/24 02:30 Lymph # (Auto) 1.5 10^3/uL (0.8-4.8) 05/16/24 02:30 [place] # (Auto) 0.3 10^3/uL (0.2-0.9) 05/16/24 02: Eos # (Auto) 0.1 10^3/uL (0.0-0.8) 05/16/24 02:30 Baso # (Auto) 0.0 10^3/uL (0.0-0.1) 05/16/24 02: Nucleated RBC % (auto) 0 % 05/16/24 02: Nucleated RBCs # 0.0 /100WBC 05/16/24 02:30 D-Dimer 0.61 ug/mLFEU (0-0.59) H 05/16/24 10:52 Sodium 136 mmol/L (136-145) 05/16/24 02:30 Potassium 3.8 mmol/L (3.5-5.1) 05/16/24 02:30 Chloride 102 mmol/L (98-107) 05/16/24 02:30 Carbon Dioxide 26 mmol/L (22-29) 05/16/24 02:30 Anion Gap 11.8 (5-19) 05/16/24 02:30 BUN 8 mg/dL (6-20) 05/16/24 02:30 Creatinine 0.7 mg/dL (0.5-0.9) 05/16/24 02:30 GFR Calculation 92.2 mL/min (90-130) 05/16/24 02:30 Glucose 108 mg/dL (65-115) 05/16/24 02:30 POC Glucose 119 mg/dL (70-110) H 05/15/24 17:31 Calculated Osmolality 281 mOsm/kg (285-295) L 05/16/24 02:30 Calcium 8.5 mg/dL (8.5-10.5) 05/16/24 02:30 Magnesium 2.0 mg/dL (1.7-2.3) 05/16/24 02:30 Total Bilirubin 0.6 mg/dL (0.15-1.2) 05/16/24 02:30 AST 29 U/L (0-32) 05/16/24 02:30 ALT 35 U/L (0-33) H 05/16/24 02:30 Alkaline Phosphatase 120 U/L (35-105) H 05/16/24 02:30 Troponin T Baseline 7 ng/L (0-10) 05/15/24 08:25 Troponin T 120 Minute 39.90 ng/L (0-10) H 05/15/24 10:27 Delta Troponin T 32.90 ABS# (0-10) H* 05/15/24 10:27 Troponin T Hi Sens 6Hr 40.55 ng/L (0-10) H 05/15/24 14:25 Troponin T Hi Sens 6Hr Delta 33.55 ng/L (0-12) H* 05/15/24 14:25 Total Protein 6.2 g/dL (6.6-8.7) L 05/16/24 02:30 Albumin 3.6 g/dL (3.5-5.2) 05/16/24 02:30 Globulin 2.6 g/dL (1.3-4.6) 05/16/24 02:30 TSH 5.59 uIU/mL (0.27-4.20) H 05/15/24 08:25 Free T4 1.06 ng/dL (0.82-1.77) 05/15/24 08:25 HCG, Qual Negative (Negative) 05/15/24 09:45 Urine Color Yellow (Yellow) 05/15/24 09:45 Urine Appearance Cloudy (CLEAR) A 05/15/24 09:45 Urine pH 6.0 (5-7) 05/15/24 09:45 Ur Specific [place] 1.012 (1.005-1.030) 05/15/24 09:45 Urine Protein 1+ (Negative) A 05/15/24 09:45 Urine Glucose (UA) Negative (Normal) 05/15/24 09:45 Urine Ketones Negative (Negative) 05/15/24 09:45 Urine Blood Non-haemolysed trace (Negative) 05/15/24 09:45 Urine Nitrate Negative (Negative) 05/15/24 09:45 Urine Bilirubin Negative (Negative) 05/15/24 09:45 Urine Urobilinogen 1.0 mg/dL (Negative) 05/15/24 09:45 Ur Leukocyte Esterase Negative (Negative) 05/15/24 09:45 Urine RBC 0-2 /hpf (0-2) 05/15/24 09:45 Urine WBC 6-10 /hpf (0-5) 05/15/24 09:45 Ur Squamous Epith Cells 11-20 /hpf (0-5) H 05/15/24 09:45 Amorphous Sediment Not Reportable 05/15/24 09:45 Urine Bacteria 1+ /hpf (NONE) H 05/15/24 09:45 Hyaline Casts 7.85 /lpf 05/15/24 09:45 Urine Opiates Screen Negative ng/mL (Negative) 05/15/24 09:45 Ur Barbiturates Screen Negative ng/mL (Negative) 05/15/24 09:45 Ur Phencyclidine Scrn Negative ng/mL (Negative) 05/15/24 09:45 Ur Amphetamines Screen Negative ng/mL (Negative) 05/15/24 09:45 U Benzodiazepines Scrn Negative ng/mL (Negative) 05/15/24 09:45 Urine Cocaine Screen Negative ng/mL (Negative) 05/15/24 09:45 U Marijuana (THC) Screen Positive ng/mL (Negative) H 05/15/24 09:45 Vitals Last Vital Signs Temp 98.1 F 05/16/24 12:00 Pulse 86 05/16/24 12:00 Resp 20 H 05/16/24 12:00 BP 140/97 05/16/24 12:00 Pulse Ox 96 05/16/24 12:00 O2 Del Method Room Air 05/16/24 12:00 Discharge Plan Discharge Patient Disposition: Home Condition: Stable Prescriptions: New amlodipine [Norvasc] 5 mg tablet 5 mg PO DAILY Qty: 90 0RF levalbuterol HCl 0.31 mg/3 mL solution for nebulization 0.31 mg inhalation Q8H PRN (Reason: shortness of breath or wheezing) Qty: 90 0RF metoprolol succinate 50 mg tablet extended release 24 hr 50 mg PO DAILY Qty: 90 0RF Continued albuterol sulfate 90 mcg/actuation Hfa Aerosol Inhaler 2 puff INHALATION Q6H PRN (Reason: Shortness Of Breath Or Wheezing) budesonide-formoterol [Symbicort] 160-4.5 mcg/actuation Hfa Aerosol Inhaler 2 puff INHALATION BID Discontinued albuterol sulfate 2.5 mg /3 mL (0.083 %) Solution For Nebulization 2.5 mg INHALATION TID PRN (Reason: Shortness Of Breath Or Wheezing) Discharge Orders: Discharge Order (Routine); Ordered 05/16/24 Ordered By: Jerry Mccarthy Referrals: Kylie Fuller NP [Nurse Practitioner] - 1 week Torsten Dunn APN [Primary Care Provider] - 4-7 days Discharge Diet: Cardiac Activity Restrictions/Additional Instructions: Please continue metoprolol 50 mg daily. Monitor your heart rate, blood pressures at home 3 times daily. Write down values to bring to her appointment. Target blood pressure is 120/80. Heart rate 60-100. In case of persistently high heart rates or blood pressures seek medical attention. As discussed please avoid any call and any caffeinated beverages, these increase your risk of return of supraventricular tachycardia. Your TSH was mildly abnormal, but free T4 was normal. Please follow-up thyroid function with your primary provider and have them recheck it in about 3 weeks. Follow-up with cardiology in office. Discharge Attestations Time Spent in Discharge Care*: greater than 30 min Quality Metrics Clinical Quality Measures [ No reported AMI, CVA or VTE this stay] Coding Level of Care Code 20595 Total time (in minutes) for Discharge: 50 Diagnoses SVT (supraventricular tachycardia) I47.10 Elevated troponin R79.89 Asthma, unspecified asthma severity, unspecified whether complicated, unspecified whether persistent J45.909 Asthma severity: unspecified severity Asthma persistence: unspecified Asthma complication type: unspecified
--- NOTE | 2024-05-16 16:27 | NMCV_ITS ---
NM gwen perf SPECT r/s* [id number] Shanice Alvarado Age: 39 Gender: F : 1985 Exam Date: 05/16/2024 16:27 Ordering Phys: Kylie Fuller NP Technologist: JACKIE Escobedo Exam Location: [facility] Indications: CP STRESS TEST Please see separate stress test report in [facility] for full findings IMAGE PROTOCOL Rest/Stress 1 Exercise Day Radiopharmaceutical Dose (mCi) Administration Site Administered by Rest: Tc-99m 10.9 IV JACKIE Wade Sestamibi Stress:Tc-99m 33 IV JACKIE Escobedo Sestamiadam Rest: 16-May-2024 60 Discovery 630 Stress: 16-May-2024 30 Discovery 630 0.4mg Lexiscan. Images obtained in supine and prone position. SPECT RESULTS Technical Quality: Good Raw Data Analysis: Normal Image Corrections: No attenuation or motion correction applied Summed Stress Score: 0 Summed Rest Score: 0 Summed Difference Score: 0 PERFUSION FINDINGS SPECT images demonstrate homogeneous tracer distribution throughout the myocardium. FUNCTIONAL RESULTS (calculated via Gated SPECT) Stress Image LV EF (%): 71 Stress EDV (mL):95 TID: 1.06 Stress ESV (mL):28 FUNCTIONAL FINDINGS: There is normal left ventricular systolic function. IMPRESSIONS Myocardial perfusion imaging is normal. Corazon Mckeon MD (Electronically Signed) Final Date: 16 May 2024 12:09 S
[2024-05-16 16:49] LABS: Adenovirus Not Detected (NOT DETECT); Chlamydia Pneumoniae Not Detected (NOT DETECT); Coronavirus 229E,HKU1,NL63,OC4 Not Detected (NOT DETECT); Human Metapneumovirus Not Detected (NOT DETECT); Human Rhinovirus/Enterovirus Not Detected (NOT DETECT); Influenza A Not Detected (NOT DETECT); Influenza A H1 Not Detected (NOT DETECT); Influenza A H1-2009 Not Detected (NOT DETECT); Influenza A H3 Not Detected (NOT DETECT); Influenza B Not Detected (NOT DETECT); Mycoplasma Pneumoniae Not Detected (NOT DETECT); Parainfluenza Virus Type 1 Not Detected (NOT DETECT); Parainfluenza Virus Type 2 Not Detected (NOT DETECT); Parainfluenza Virus Type 3 Not Detected (NOT DETECT); Parainfluenza Virus Type 4 Not Detected (NOT DETECT); Respiratory Syncytial Virus A Not Detected (NOT DETECT); Respiratory Syncytial Virus B Not Detected (NOT DETECT); SARS-COV-2 Not Detected (NOT DETECT)
== END 2024-05-16 17:24 | disposition home or self-care (01) ==
LOC: ER 10:42 → ER IP 12:09 → CSU 14:57
PROVIDERS: Nurse Practitioner Family; Admitting Provider Internal Medicine; Emergency Provider Family Medicine; PCP Nurse Practitioner Family; Visit Provider Internal Medicine
DX: I47.10 Supraventricular tachycardia, unspecified (principal); R79.89 Other specified abnormal findings of blood chemistry; J45.909 Unspecified asthma, uncomplicated
CPT/HCPCS: 36415; 36416; 71045; 71275; 78452; 80053; 80306; 81001; 81025; 82962; 83735; 84439; 84443; 84484; 85025; 85378; 87486; 87581; 87633; 93005; 93017; 93306; 94640; 96374; 96375; 96376; 99285; A9500; G0378; J0153; J0360; J2405; J2785; J3490; J7614; J7626